=== PATIENT | female | born 1990 | race African-American/Black ===

== ENCOUNTER 2019-02-19 07:32 | Emergency (ER) | payer OTHER | END 2019-02-19 08:16 | disposition home or self-care (01) | LOC: BURERS 07:32 | DX: F41.9 Anxiety disorder, unspecified (principal); F17.210 Nicotine dependence, cigarettes, uncomplicated | CPT/HCPCS: 99283 ==

== ENCOUNTER 2019-03-13 07:03 | Emergency (ER) | payer OTHER ==
[2019-03-13] MEDS ORDERED: Ibuprofen 800 MG TAB ONE (07:53)
--- NOTE | 2019-03-13 08:19 | CT ---
CT facial bones, noncontrast CLINICAL HISTORY: Pain, injury COMPARISON: None FINDINGS: Facial bones: No fracture. Facial soft tissues: No significant abnormality. Orbital contents: No acute abnormality. Paranasal sinuses: There is an atelectatic right maxillary sinus with associated opacification. Aplas ia of the right frontal air cell. IMPRESSION: No acute facial fracture
== END 2019-03-13 08:34 | disposition home or self-care (01) ==
LOC: BURERS 07:03
DX: S00.83XA Contusion of other part of head, initial encounter (principal); F17.210 Nicotine dependence, cigarettes, uncomplicated; F41.9 Anxiety disorder, unspecified; F31.9 Bipolar disorder, unspecified; Y04.0XXA Assault by unarmed brawl or fight, initial encounter; Y92.69 Other specified industrial and construction area as the place of occurrence of the external cause
CPT/HCPCS: 70486

== ENCOUNTER 2019-11-13 16:49 | Emergency (ER) | payer BC, OTHER ==
[2019-11-13 18:01] LABS: #Basophils 0.1 thou/uL (0.0-0.2); #Eosinphils 0.2 thou/uL (0.0-0.7); #Lymphocytes 1.7 thou/uL (1.20-3.40); #Monocytes 0.3 thou/uL (0.11-0.59); #Neutrophils 2.6 thou/uL (1.40-6.50); %Basophils 1.1 % (0.0-1.0); %Eosinophils 3.5 % (0.0-10.0); %Lymphocytes 35.5 % (21.0-51.0); %Monocytes 5.2 % (0.0-10.0); %Neutrophils 54.6 % (42.0-75.0); Hemoglobin 14.1 g/dL (12.0-16.0); Mean Corpuscular Hemoglobin 31.7 pg (27.0-31.0); Mean Corpuscular Volume 95.9 fL (78.0-98.0); Mean Platelet Volume 8.9 fL (7.4-10.4); Platelet Count 308 thou/uL (130-400); RBC Distribution Width 12.9 % (11.5-14.5); Red Blood Cell (RBC) Count 4.45 mill/uL (4.20-5.40); White Blood Cell (WBC) Count 4.7 thou/uL (4.8-10.8)
[2019-11-13 18:09] LABS: ALT (SGPT) 29 U/L (8-55); AST (SGOT) 17 U/L (5-34); Albumin 3.8 g/dL (3.5-5.0); Alkaline Phosphatase 94 U/L (40-110); Anion Gap 12 mmol/L (10-20); BUN (Urea Nitrogen) 8 mg/dL (7.0-18.7); Bilirubin, Total 0.7 mg/dL (0.2-1.2); Calc. Creatinine Clearance 0 mL/min (70-130); Calcium 9.2 mg/dL (7.8-10.44); Carbon Dioxide 24 mmol/L (22-29); Chloride 107 mmol/L (98-107); Estimated GFR-MDRD Greater than 90; Globulin 3.6 g/dL (2.4-3.5); Glucose 93 mg/dL (70-105); Potassium 4.2 mmol/L (3.5-5.1); Protein, Total 7.4 g/dL (6.0-8.3); Sodium 139 mmol/L (136-145)
[2019-11-13 18:10] LABS: Bilirubin Negative (Negative); Blood, Urine Negative (Negative); Clarity Clear (Clear); Glucose, Urine (Dipstick) Negative (Negative); Leukocyte Negative (Negative); Nitrite Negative (Negative); Pregnancy Test - Urine (BHCG) Negative (Negative); Pregu Control Background? CLEAR/WHITE (CLR/WHITE); Pregu Control Bar Appear? YES (CONTROL BAR); Protein, Urine (Dipstick) Negative (Neg-Trace)
--- NOTE | 2019-11-13 20:07 | RAD ---
PORTABLE CHEST: 11/13/19 An AP portable film at 1732 is compared with a 10/05/19 study done at [facility]. The heart is normal in size and the lungs are clear. No infiltrate or effusion was seen. There is no vascular congestion or edema. The mediastinum appears normal. IMPRESSION: No acute thoracic findings. POS: HOME
== END 2019-11-13 18:30 | disposition home or self-care (01) ==
LOC: BURERS 16:49
DX: R42 Dizziness and giddiness (principal); R53.1 Weakness; F41.9 Anxiety disorder, unspecified; F31.9 Bipolar disorder, unspecified; F17.210 Nicotine dependence, cigarettes, uncomplicated
CPT/HCPCS: 36415; 71045; 80053; 81003; 81025; 85025; 93005

== ENCOUNTER 2021-05-20 17:22 | Emergency (ER) | payer BC, OTHER | END 2021-05-20 19:12 | disposition home or self-care (01) | LOC: BURERS 17:22 | DX: L03.111 Cellulitis of right axilla (principal); F17.210 Nicotine dependence, cigarettes, uncomplicated; Z86.718 Personal history of other venous thrombosis and embolism | CPT/HCPCS: 99282 ==

== ENCOUNTER 2023-01-08 06:49 | Emergency (ER) | payer BC, OTHER ==
[2023-01-08] MEDS ORDERED: methylPREDNISolone Sod Succ/PF 125 MG/2 ML VIAL ONE (07:18)
== END 2023-01-08 07:33 | disposition home or self-care (01) ==
LOC: BURERS 06:49
DX: M54.10 Radiculopathy, site unspecified (principal); F17.210 Nicotine dependence, cigarettes, uncomplicated
CPT/HCPCS: 96372; 99283; J2930

== ENCOUNTER 2024-11-11 10:05 | Emergency (ER) | payer BC, OTHER, SELFPAY ==
[2024-11-11] MEDS ORDERED: Ibuprofen 800 MG TAB ONE (10:52)
== END 2024-11-11 11:15 | disposition home or self-care (01) ==
LOC: BURERS 10:05
DX: J10.1 Influenza due to other identified influenza virus with other respiratory manifestations (principal); F17.210 Nicotine dependence, cigarettes, uncomplicated
CPT/HCPCS: 87400; 87426; 99283